=== PATIENT | female | born 1940 | race African-American/Black ===

== ENCOUNTER 2023-09-23 13:52 | Inpatient (IN) | payer MEDICARE, OTHER ==
[2023-09-23] MEDS ORDERED: ACETAMINOPHEN INJECTION 100 ML IVPB ONE (15:31)
[2023-09-23] MEDS ORDERED: ONDANSETRON 4 MG/2 ML VIAL ONE ×2 (15:31→15:33)
[2023-09-23] MEDS ORDERED: FAMOTIDINE 20 MG/50 ML IVPB 20 MG/50 ML MG IVPB ONE (15:32)
[2023-09-23] MEDS: LACTATED RINGERS SOLUTION 1000 ML INFUS.BAG IV ONE (15:53)
[2023-09-23] MEDS: FAMOTIDINE 20 MG/50 ML IVPB 20 MG/50 ML MG IVPB ONE (15:54)
[2023-09-23] MEDS: ONDANSETRON 4 MG/2 ML VIAL IVPUSH ONE (15:54)
[2023-09-23] MEDS: ACETAMINOPHEN 1000 MG/100 ML BAG IVPB ONE (15:54)
[2023-09-23 16:00] LABS: BASO % 0.4 % (0-2.0); EOS % 0.2 % (0-4.5); HEMATOCRIT 49.4 % (32.4-45.2); HEMOGLOBIN 16.5 GM/dL (10.7-15.3); LYMPH % 12.1 % (8-40); MCH 32.7 pg (25.7-33.7); MCHC 33.4 g/dl (32.0-36.0); MEAN CELL VOLUME 97.9 fl (80-96); MEAN PLT VOLUME 8.8 fl (7.5-11.1); MONO % 5.6 % (3.8-10.2); NEUT % 81.7 % (42.8-82.8); PLATELET COUNT 353 10^3/uL (134-434); RBC 5.05 M/mm3 (3.60-5.2); RDW 14.2 % (11.6-15.6); WHITE BLOOD COUNT 11.1 K/mm3 (4.0-10.0)
[2023-09-23 16:08] LABS: INR 0.9 (0.83-1.09); PROTHROMBIN TIME (PATIENT) 10.4 SEC (9.7-13.0)
[2023-09-23 16:10] LABS: ACTIVATED PTT 18.2 SECONDS (25.2-36.5)
[2023-09-23 16:20] LABS: CALCIUM 10.7 mg/dL (8.5-10.1)
[2023-09-23 16:21] LABS: ALBUMIN 3.6 g/dl (3.4-5.0); BLOOD UREA NITROGEN 29.7 mg/dL (7-18); MAGNESIUM 2.4 mg/dL (1.8-2.4)
[2023-09-23 16:24] LABS: CREATININE 1.7 mg/dL (0.55-1.3)
[2023-09-23 16:26] LABS: BILIRUBIN,TOTAL 1.2 mg/dL (0.2-1); TOT PROT 8.2 g/dl (6.4-8.2)
[2023-09-23] MEDS ORDERED: methylPREDNISolone NA SUCC 125 MG/2 ML VIAL ONE (16:36)
[2023-09-23] MEDS ORDERED: ALBUTEROL SO4 2.5/IPRATROPIUM 0.5 INH SOL 3 ML VIAL.NEB. NEB ONE (16:36)
[2023-09-23] MEDS: ALBUTEROL SO4 2.5/IPRATROPIUM 0.5 INH SOL 3 ML VIAL.NEB. NEB SCH (17:46)
[2023-09-23] MEDS: methylPREDNISolone NA SUCC 125 MG/2 ML VIAL IVPB ONE (17:46)
[2023-09-23] MEDS: SODIUM CHLORIDE 1,000 ML IV STA (17:56)
[2023-09-23] MEDS ORDERED: ALBUTEROL SO4 HFA INHALER IH PRN (19:34)
[2023-09-23] MEDS ORDERED: ALBUTEROL SO4 0.083% IH SOL 2.5 MG/3 ML VIAL.NEB. NEB PRN (19:34)
[2023-09-23] MEDS ORDERED: PIPERACILLIN/TAZOB 3.375 GM 3.375 GM/50 ML BAG IVPB ONE (19:41)
[2023-09-23] MEDS: PIPERACILLIN/TAZOB 3.375 GM 3.375 GM in DEXTROSE 5%-WATER - 50 ML IVPB ONE (19:54)
[2023-09-23] MEDS ORDERED: methylPREDNISolone NA SUCC 40 MG/1 ML VIAL ONE (21:27)
[2023-09-23] MEDS: methylPREDNISolone NA SUCC 40 MG/1 ML VIAL IVPUSH SCH (21:31)
[2023-09-24] MEDS: BUPIVACAINE HCL/PF 0.25% (2.5MG/ML) 10 ML VIAL IJ ONE
[2023-09-24] MEDS ORDERED: HEPARIN NA (PORCINE) 5,000 UNITS/ML 1ML VIAL ONE (07:25)
[2023-09-24] MEDS ORDERED: BUPIVACAINE HCL/PF 0.25% (2.5MG/ML) 10 ML VIAL ONE (07:25)
[2023-09-24 07:54] LABS: POTASSIUM 4.1 mmol/L (3.5-5.1)
[2023-09-24 08:04] LABS: ALBUMIN 3.1 g/dl (3.4-5.0); BLOOD UREA NITROGEN 26.4 mg/dL (7-18)
[2023-09-24 08:05] LABS: CALCIUM 9.3 mg/dL (8.5-10.1); MAGNESIUM 2.1 mg/dL (1.8-2.4)
[2023-09-24 08:07] LABS: CREATININE 1.2 mg/dL (0.55-1.3); PHOSPHOROUS 2.7 mg/dL (2.5-4.9)
[2023-09-24 08:09] LABS: BILIRUBIN,TOTAL 0.5 mg/dL (0.2-1); TOT PROT 6.6 g/dl (6.4-8.2)
[2023-09-24 08:41] LABS: BASO % 0.5 % (0-2.0); EOS % 0.1 % (0-4.5); HEMATOCRIT 43.8 % (32.4-45.2); HEMOGLOBIN 14.3 GM/dL (10.7-15.3); LYMPH % 10.6 % (8-40); MCH 32.4 pg (25.7-33.7); MCHC 32.7 g/dl (32.0-36.0); MEAN CELL VOLUME 99.1 fl (80-96); MEAN PLT VOLUME 8.6 fl (7.5-11.1); MONO % 2.4 % (3.8-10.2); NEUT % 86.4 % (42.8-82.8); PLATELET COUNT 253 10^3/uL (134-434); RBC 4.42 M/mm3 (3.60-5.2); WHITE BLOOD COUNT 7.6 K/mm3 (4.0-10.0)
[2023-09-24] MEDS ORDERED: amLODIPine BESYLATE 5 MG TABLET (FP) ONE (09:17)
[2023-09-24] MEDS ORDERED: methylPREDNISolone NA SUCC 40 MG/1 ML VIAL ONE ×2 (09:18→17:46)
[2023-09-24] MEDS: amLODIPine BESYLATE 5 MG TABLET (FP) PO SCH (10:07)
[2023-09-24] MEDS ORDERED: ALBUTEROL SO4 2.5/IPRATROPIUM 0.5 INH SOL 3 ML VIAL.NEB. NEB ONE ×2 (12:25→17:46)
[2023-09-24] MEDS: ALBUTEROL SO4 2.5/IPRATROPIUM 0.5 INH SOL 3 ML VIAL.NEB. NEB SCH (12:29)
[2023-09-24] MEDS: SODIUM CHLORIDE 0.45% 1,000 ML IV SCH (13:20)
[2023-09-24] MEDS ORDERED: POLYETHYLENE GLYCOL (HEALTHYLAX) 3350 17 GM PACKET PO SCH (14:15)
[2023-09-25] MEDS: ACETAMINOPHEN 1000 MG/100 ML BAG IVPB PRN (02:57)
[2023-09-25 05:16] LABS: EPI CELLS >36 /uL (0-25.1); HYALINE CASTS 1 /uL (0-3.1); PH,URINE 5.5 (5.0-8.0); URINE APPEARANCE CLOUDY; URINE BACTERIA 1545 /uL (0-1359); URINE BILIRUBIN NEGATIVE (NEGATIVE); URINE COLOR DK YELLOW; URINE GLUCOSE (UA) NEGATIVE (NEGATIVE); URINE KETONE 1+ (NEGATIVE); URINE LEUK ESTERASE 1+ (NEGATIVE); URINE NITRITE NEGATIVE (NEGATIVE); URINE PROTEIN 2+ (NEGATIVE); URINE WBC 76 /uL (0-25.8)
[2023-09-25 08:07] LABS: POTASSIUM 4.3 mmol/L (3.5-5.1)
[2023-09-25 08:11] LABS: HEMATOCRIT 41.3 % (32.4-45.2); HEMOGLOBIN 13.8 GM/dL (10.7-15.3); MCH 32.4 pg (25.7-33.7); MCHC 33.3 g/dl (32.0-36.0); MEAN CELL VOLUME 97.3 fl (80-96); MEAN PLT VOLUME 9.1 fl (7.5-11.1); PLATELET COUNT 256 10^3/uL (134-434); RBC 4.24 M/mm3 (3.60-5.2); RDW 14.4 % (11.6-15.6); WHITE BLOOD COUNT 9.4 K/mm3 (4.0-10.0)
[2023-09-25 08:19] LABS: ALBUMIN 3.1 g/dl (3.4-5.0)
[2023-09-25 08:20] LABS: BLOOD UREA NITROGEN 25.5 mg/dL (7-18)
[2023-09-25 08:22] LABS: CREATININE 0.9 mg/dL (0.55-1.3)
[2023-09-25 08:24] LABS: BILIRUBIN,TOTAL 0.9 mg/dL (0.2-1); TOT PROT 6.6 g/dl (6.4-8.2)
[2023-09-25 09:08] LABS: ANISOCYTOSIS 0; MACROCYTOSIS 0
[2023-09-25 09:31] LABS: URINE RBC 154.2 /uL (0-23.9)
[2023-09-26 09:50] LABS: BASO % 0.2 % (0-2.0); HEMATOCRIT 41.9 % (32.4-45.2); HEMOGLOBIN 13.7 GM/dL (10.7-15.3); LYMPH % 6.2 % (8-40); MCHC 32.7 g/dl (32.0-36.0); MEAN CELL VOLUME 97.9 fl (80-96); MEAN PLT VOLUME 8.9 fl (7.5-11.1); MONO % 2.8 % (3.8-10.2); NEUT % 90.8 % (42.8-82.8); PLATELET COUNT 267 10^3/uL (134-434); RBC 4.28 M/mm3 (3.60-5.2); RDW 13.9 % (11.6-15.6); WHITE BLOOD COUNT 9.4 K/mm3 (4.0-10.0)
[2023-09-26 10:11] LABS: POTASSIUM 4.3 mmol/L (3.5-5.1)
[2023-09-26 10:16] LABS: BLOOD UREA NITROGEN 22.8 mg/dL (7-18); CALCIUM 9.8 mg/dL (8.5-10.1)
[2023-09-26] MEDS: HEPARIN NA (PORCINE) 5,000 UNITS/ML 1ML VIAL SQ SCH (10:19)
[2023-09-26] MEDS: LISINOPRIL 5 MG TABLET PO SCH (10:19)
[2023-09-26 10:20] LABS: CREATININE 1.1 mg/dL (0.55-1.3)
[2023-09-27 08:26] LABS: HEMATOCRIT 42.6 % (32.4-45.2); HEMOGLOBIN 14.4 GM/dL (10.7-15.3); MCH 32.6 pg (25.7-33.7); MCHC 33.8 g/dl (32.0-36.0); MEAN CELL VOLUME 96.6 fl (80-96); MEAN PLT VOLUME 8.6 fl (7.5-11.1); PLATELET COUNT 293 10^3/uL (134-434); RBC 4.41 M/mm3 (3.60-5.2); RDW 14.5 % (11.6-15.6); WHITE BLOOD COUNT 8.3 K/mm3 (4.0-10.0)
[2023-09-27 09:37] LABS: ANISOCYTOSIS 0; HELMET CELLS 0; HOWELL-JOLLY BODIES 0; MACROCYTOSIS 0; OVALOCYTE 0; ROULEAU 0; SICKELED CELLS 0; TARGET CELLS 0; TEAR DROP CELLS 0; TOXIC GRANULATION 0
[2023-09-28] MEDS: KETOROLAC TROMETHAMINE 15 MG/ML VIAL IM ONE (00:20)
[2023-09-28] MEDS: KETOROLAC TROMETHAMINE 15 MG/ML VIAL IVPUSH ONE (02:24)
[2023-09-28] MEDS: methylPREDNISolone NA SUCC 40 MG/1 ML VIAL IVPUSH SCH ×2 (09:14→17:39)
[2023-09-28] MEDS: CARVEDILOL 6.25 MG TABLET (FP) PO SCH (21:20)
[2023-09-29] MEDS: LEVALBUTEROL HCL 0.31 MG/3 ML VIAL.NEB IH ONE (03:37)
[2023-09-29 11:11] LABS: HEMATOCRIT 44.5 % (32.4-45.2); HEMOGLOBIN 14.5 GM/dL (10.7-15.3); MCH 31.8 pg (25.7-33.7); MCHC 32.6 g/dl (32.0-36.0); MEAN CELL VOLUME 97.7 fl (80-96); MEAN PLT VOLUME 9.1 fl (7.5-11.1); PLATELET COUNT 305 10^3/uL (134-434); RBC 4.56 M/mm3 (3.60-5.2); WHITE BLOOD COUNT 12.4 K/mm3 (4.0-10.0)
[2023-09-29 11:42] LABS: POTASSIUM 4.5 mmol/L (3.5-5.1)
[2023-09-29 11:43] LABS: CALCIUM 9.6 mg/dL (8.5-10.1)
[2023-09-29 11:44] LABS: BLOOD UREA NITROGEN 28.4 mg/dL (7-18)
[2023-09-29 11:47] LABS: CREATININE 1.1 mg/dL (0.55-1.3)
[2023-09-29] MEDS: ALBUTEROL SO4 2.5/IPRATROPIUM 0.5 INH SOL 3 ML VIAL.NEB. NEB SCH (16:57)
[2023-09-29] MEDS ORDERED: ONDANSETRON 4 MG/2 ML VIAL IVPUSH PRN ×2 (17:43→22:09)
[2023-09-29] MEDS ORDERED: PROMETHAZINE HCL 25 MG/1 ML VIAL IVPB PRN ×2 (17:43→22:09)
[2023-09-29] MEDS ORDERED: LACTATED RINGERS SOLUTION 1,000 ML IV SCH ×2 (17:45→22:09)
[2023-09-29] MEDS ORDERED: BUPIVACAINE HCL/PF 0.25% (2.5MG/ML) 10 ML VIAL ONE (17:55)
[2023-09-29] MEDS ORDERED: ROCURONIUM BROMIDE 50 MG/5 ML SYRINGE ONE ×2 (17:56→20:09)
[2023-09-29] MEDS ORDERED: FENTANYL CITRATE/PF 50 MCG/ML VIAL ONE ×6 (17:56→22:10)
[2023-09-29] MEDS ORDERED: PROPOFOL 20 ML ONE ×3 (17:56→21:11)
[2023-09-29] MEDS ORDERED: LIDOCAINE HCL/PF 2% SDV 5ML VIAL ONE (17:58)
[2023-09-29] MEDS ORDERED: ceFAZolin SODIUM 1 GM VIAL ONE (18:05)
[2023-09-29] MEDS ORDERED: SODIUM CHLORIDE 0.9% P/F 10 ML VIAL IJ ONE (18:05)
[2023-09-29] MEDS: ceFAZolin SODIUM 1 GM VIAL IVPB ONE (18:10)
[2023-09-29] MEDS ORDERED: methylPREDNISolone NA SUCC 125 MG/2 ML VIAL ONE (18:24)
[2023-09-29] MEDS ORDERED: METOPROLOL TARTRATE 5 MG/5 ML VIAL ONE (18:40)
[2023-09-29] MEDS ORDERED: METOCLOPRAMIDE HCL INJECTION 10 MG/2 ML VIAL ONE (18:54)
[2023-09-29] MEDS ORDERED: KETOROLAC TROMETHAMINE 30 MG/1 ML VIAL ONE (20:21)
[2023-09-29] MEDS ORDERED: SUGAMMADEX SODIUM 200 MG/2 ML VIAL ONE (21:15)
[2023-09-29] MEDS: BUPIVACAINE HCL/PF 0.25% (2.5MG/ML) 10 ML VIAL IJ ONE (21:21)
[2023-09-29] MEDS ORDERED: traMADol HCL 50 MG TABLET PO PRN (21:36)
[2023-09-29] MEDS ORDERED: ALBUTEROL SO4 0.083% IH SOL 2.5 MG/3 ML VIAL.NEB. NEB ONE (21:51)
[2023-09-29] MEDS: SODIUM CHLORIDE 1,000 ML IV SCH (22:00)
[2023-09-29] MEDS: ALBUTEROL SO4 0.083% IH SOL 2.5 MG/3 ML VIAL.NEB. NEB ONE (22:00)
[2023-09-29] MEDS ORDERED: ALBUTEROL SO4 HFA INHALER IH PRN (22:09)
[2023-09-30] MEDS: methylPREDNISolone NA SUCC 40 MG/1 ML VIAL IVPUSH SCH (02:24)
[2023-09-30] MEDS: HEPARIN NA (PORCINE) 5,000 UNITS/ML 1ML VIAL SQ SCH (02:24)
[2023-09-30] MEDS ORDERED: ACETAMINOPHEN 1000 MG/100 ML BAG IVPB PRN (06:00)
[2023-09-30] MEDS: ALBUTEROL SO4 2.5/IPRATROPIUM 0.5 INH SOL 3 ML VIAL.NEB. NEB SCH (07:35)
[2023-09-30] MEDS: LISINOPRIL 5 MG TABLET PO SCH (09:39)
[2023-09-30] MEDS: CARVEDILOL 6.25 MG TABLET (FP) PO SCH (09:39)
[2023-09-30 11:31] LABS: BASO % 0.2 % (0-2.0); HEMATOCRIT 43.2 % (32.4-45.2); HEMOGLOBIN 14.2 GM/dL (10.7-15.3); LYMPH % 6.4 % (8-40); MCH 31.8 pg (25.7-33.7); MCHC 32.8 g/dl (32.0-36.0); MEAN CELL VOLUME 96.8 fl (80-96); MEAN PLT VOLUME 8.4 fl (7.5-11.1); MONO % 4.2 % (3.8-10.2); NEUT % 89.2 % (42.8-82.8); PLATELET COUNT 307 10^3/uL (134-434); RBC 4.46 M/mm3 (3.60-5.2); RDW 14.1 % (11.6-15.6); WHITE BLOOD COUNT 11.9 K/mm3 (4.0-10.0)
[2023-09-30 15:06] VITALS: BMI 30.8
[2023-09-30] MEDS: CARVEDILOL 12.5 MG TABLET (FP) PO SCH (21:50)
[2023-09-30 21:57] VITALS: RESP 18
[2023-10-01] MEDS ORDERED: ACETAMINOPHEN 1000 MG/100 ML BAG IVPB PRN (06:00)
[2023-10-01 08:52] LABS: POTASSIUM 3.9 mmol/L (3.5-5.1)
[2023-10-01 08:58] LABS: BLOOD UREA NITROGEN 38.9 mg/dL (7-18)
[2023-10-01 09:01] LABS: CREATININE 1.2 mg/dL (0.55-1.3)
[2023-10-01] MEDS: methylPREDNISolone NA SUCC 40 MG/1 ML VIAL IVPUSH SCH (09:47)
[2023-10-01] MEDS ORDERED: ACETAMINOPHEN 500 MG TABLET (FP) PO PRN (10:43)
[2023-10-01] MEDS: HEPARIN NA (PORCINE) 5,000 UNITS/ML 1ML VIAL SQ SCH (11:44)
[2023-10-02 06:22] VITALS: BP 145/71; PULSE 74; TEMP 97.9
== END 2023-10-02 11:49 | disposition home health service (06) | DRG 354 ==
LOC: JER 13:52 → JERBED 18:01 → OBSVTOIN 19:34 → J8W 09-24 20:02
PROVIDERS: ADMIT Family Medicine; ATTEND Family Medicine
PROC: 8E0W4CZ Robotic Assisted Procedure of Trunk Region, Percutaneous Endoscopic Approach (ICD-10-PCS; 2023-09-29)
PROC: 0WUF4JZ Supplement Abdominal Wall with Synthetic Substitute, Percutaneous Endoscopic Approach (ICD-10-PCS; principal; 2023-09-29 16:15)
DX: K42.0 Umbilical hernia with obstruction, without gangrene (principal); J45.901 Unspecified asthma with (acute) exacerbation; K56.699 Other intestinal obstruction unspecified as to partial versus complete obstruction; I10 Essential (primary) hypertension; G62.9 Polyneuropathy, unspecified
CPT/HCPCS: 36415; 71045-TC-FY; 74176-TC; 80048; 80053; 81003; 82436; 82570; 82962; 83516; 83605; 83690; 83735; 84100; 84133; 84300; 84484; 85025; 85027; 85610; 85730; 86850; 86900; 86901; 87086; 93005; 93010; 94010; 94640; 94760; 97116-GP; 97161-GP; 99285-25; C1781; G0378; J0131; J1644